=== PATIENT | male | born 1940 | race Caucasian/White ===

== ENCOUNTER 2019-05-08 17:09 | Inpatient (IN) ==
--- NOTE | 2019-05-08 17:45 | Emergency Department Note ---
Lower Extremity Injury HPI - General Chief Complaint: Extremity Injury, Lower Stated Complaint: rt hip Pain Time Seen by Provider: 05/08/19 17:31 Source: patient Mode of arrival: ambulatory Limitations: no limitations - History of Present Illness HPI Narrative: LTCF states pt has demonstrated right hip fracture sustained while assisted fall to the ground. Pt with unspecified mental disabilities and as a result poor historian. He states no pain currently. Their paperwork states pt has a right intertrochanteric fracture. complaint: hip injury Onset (ago): day(s) (1) Injury: Right: hip (pt not really reporting pain) Type of Injury: other (assisted fall) Place: other (LTCF) Improves with: nothing Worsens with: weight bearing Context: fall Other symptoms: none - Related Data Home Medications Medication Instructions Recorded Confirmed alprazolam 0.25 mg tablet 0.25 mg PO BID 07/21/15 04/12/18 aripiprazole 2 mg tablet 2 mg PO QHS 07/21/15 04/12/18 aspirin 81 mg tablet,delayed 81 mg PO QDAY 07/21/15 04/12/18 release benztropine PO 07/21/15 04/12/18 cholecalciferol (vitamin D3) 2,000 2,000 unit PO QDAY 07/21/15 04/12/18 unit capsule cyanocobalamin (vit B-12) 500 mcg 1,000 mcg PO QDAY 07/21/15 04/12/18 tablet docusate sodium PO 07/21/15 04/12/18 donepezil 10 mg tablet 10 mg PO QDAY tab 07/21/15 04/12/18 folic acid PO 07/21/15 04/12/18 ibuprofen 200 mg tablet 400 mg PO BID tab 07/21/15 04/12/18 multivitamin tablet 1 tab PO QDAY 07/21/15 04/12/18 polyethylene glycol 3350 17 gram 17 g PO QDAY 07/21/15 04/12/18 oral powder packet ranitidine 300 mg tablet 300 mg PO QHS 07/21/15 04/12/18 sertraline 100 mg tablet 100 mg PO QDAY 07/21/15 04/12/18 simvastatin 20 mg tablet 20 mg PO QPM 07/21/15 04/12/18 valacyclovir 1 gram tablet PO 07/21/15 04/12/18 bisacodyl 10 mg rectal suppository 10 mg DE PRN supp 08/11/15 04/12/18 docusate sodium 100 mg capsule 100 mg PO BID 08/11/15 04/12/18 tamsulosin 0.4 mg capsule 0.4 mg PO QDAY 08/11/15 04/12/18 acetaminophen ER 650 mg 650 mg PO Q6H tab 09/21/15 04/12/18 tablet,extended release lactobacillus combination no.4 3 3,000 mmu cells PO QDAY 09/21/15 04/12/18 billion cell capsule magnesium hydroxide 400 mg/5 mL 30 ml PO QHS PRN 09/21/15 04/12/18 oral suspension melatonin 3 mg tablet 3 mg PO HS PRN 09/21/15 04/12/18 Previous Rx's Medication Instructions Recorded Azithromycin [Zithromax] 250 mg PO UD #6 tab 11/21/15 Azithromycin [Zithromax] 0 mg PO DAILY #6 tab 01/28/18 Cefuroxime Axetil [Cefuroxime] 250 mg PO BID #20 tab 01/28/18 Allergies Allergy/AdvReac Type Severity Reaction Status Date / Time No Known Drug Allergies Allergy Verified 04/12/18 10:36 Review of Systems Limitations: ROS unobtainable due to patients medical condition Past Medical History - Past Medical History PMFSH Narrative: All Active Problems (Last Reviewed 04/12/18 @ 10:38 by Kelly Franco RN) BPH loc w urin obs/LUTS (Acute) Bronchitis (Acute) Elevated WBCs (Acute) Abnormal lung sounds (Acute) Hyponatremia (Acute) Anemia (Acute) No pertinent family history (Acute) Aphthous stomatitis (Acute) COPD (chronic obstructive pulmonary disease) (Acute) Dementia (Acute) Depression (Acute) Dermatitis (Acute) Eczema (Acute) GERD (gastroesophageal reflux disease) (Acute) Arthritis (Acute) Dyslipidemia (Acute) Abnormal involuntary movements (Acute) Unspecified intellectual disabilities (Acute) - Social History smoking status: Smoker, status unknown Alcohol use: Reports: Unknown Drug use: Reports: unknown Physical Exam Limitations: no limitations General appearance: alert, in no apparent distress, other (pt is at baseline neurological function) Head: atraumatic, normocephalic Eye: Present: normal appearance, PERRL, EOMI. Absent: scleral icterus, conjunc tival injection ENT: Present: normal oropharynx, mucous membranes moist Neck: Present: trachea midline. Absent: lymphadenopathy, thyromegaly Chest: Present: symmetric chest wall rise Respiratory: Present: normal lung sounds bilaterally. Absent: respiratory distress, wheezes, stridor, accessory muscle use, prolonged expiratory phase Cardiovascular: Present: regular rate, normal rhythm. Absent: systolic murmur, diastolic murmur Abdominal: Present: soft. Absent: distention, tenderness, guarding, rebound, rigidity, organomegaly, mass Extremities: Present: other (pt is not having much pain on manipulation of the hip, Specific evaluation of the right hip reveals patient is unable to ambulate, though patient did have leg length discrepancy, right hip was internally rotated motor testing including dorsiflexion plantarflexion of the foot was noted to be intact, sensation on the dorsum and bottom of the foot was intact as well lower extremity pulses were assessed and noted to be +2 and symmetric). Absent: pedal edema, pretibial edema, calf tenderness Back: Absent: CVA tenderness (R), CVA tenderness (L), spinous process tenderness Neurological: Present: alert, oriented X3 Psychiatric: Present: normal affect, normal mood Skin: Present: warm, dry Course Course Narrative: 78-year-old male presenting with a chief complaint of ground-level fall assisted to the floor resulting in injury to his right hip. X-rays obtained here in the emergency department demonstrate a right hip intertrochanteric fracture with some comminution. Patient is not having significant pain on physical exam does have physical exam consistent with hip fracture discussed the case with orthopedic surgery and the consensus medical opinion is to admit the patient to medicine with likely surgery upcoming. Differential diagnosis considered in this case included trochanteric bursitis, hip osteoarthritis, meralgia paresthetica, osteonecrosis, hip fracture/dislocation, aortoiliac vascular disease, referred pain from SI joint or lumbar area. Vital Signs Temperature 99.9 F H 05/08/19 17:09 Pulse Rate 78 05/08/19 17:09 Respiratory Rate 20 05/08/19 17:09 Blood Pressure 131/72 05/08/19 17:09 Pulse Oximetry (%) 95 05/08/19 17:09 Temperature 99.9 F H 05/08/19 17:09 Pulse Rate 72 05/08/19 18:56 Respiratory Rate 18 05/08/19 18:56 Blood Pressure 130/70 05/08/19 18:56 Pulse Oximetry (%) 95 05/08/19 18:56 Extremity Injury, Lower - Lab Data Result diagrams: 05/08/19 18:07 05/08/19 18:06 Lab Results 05/08/19 05/08/19 Range/Units 18:06 18:07 WBC 8.5 (4.5-11.0) K/mcL RBC 3.49 L (4.50-5.90) M/mcL Hgb 9.8 L (13.5-16.5) g/dL Hct 29.7 L (41.0-55.0) % MCV 84.9 (80.0-100.0) fL MCH 28.1 (26.0-34.0) pg MCHC 33.1 (31.0-36.0) g/dL RDW 15.6 H (11.5-14.5) % Plt Count 251 (140-440) K/mcL MPV 7.7 (7.4-10.4) fL Gran % 66.7 (38.0-78.0) % Lymph % (Auto) 19.5 (15.5-49.0) % [place] % (Auto) 9.1 (1.0-12.0) % Eos % (Auto) 4.0 (0.0-7.0) % Baso % (Auto) 0.7 (0.0-2.0) % Gran # 5.6 (1.8-8.0) K/mcL Lymph # (Auto) 1.7 (1.5-4.8) K/mcL [place] # (Auto) 0.8 (0.1-0.9) K/mcL Eos # (Auto) 0.3 (0.0-0.7) K/mcL Baso # (Auto) 0.1 (0.0-0.3) K/mcL Sodium 136 (133-145) mmol/L Potassium 3.8 (3.3-5.1) mmol/L Chloride 99 (96-108) mmol/L Carbon Dioxide 25 (22-30) mmol/L Anion Gap 12.0 (8-16) BUN 16 (8-23) mg/dl Creatinine 0.7 (0.7-1.2) mg/dl GFR Calculation 89 Glucose 111 H (70-105) mg/dL Calcium 9.0 (8.6-10.4) mg/dl Total Bilirubin 0.3 (0.0-1.0) mg/dL AST 14 (0-37) U/l ALT 7 (0-40) U/l Alkaline Phosphatase 92 (39-117) U/L Total Protein 6.9 (5.9-8.4) gm/dL Albumin 3.8 (3.2-5.2) gm/dL Globulin 3.1 (2.2-3.7) gm/dL Albumin/Globulin Ratio 1.2 (1.0-2.3) Disposition Pt seen by [facility]/PA only: No Clinical Impression: Fracture of hip Disposition: Xfer As Inpt ([facility]) Condition: Fair Referrals: Issac Caldera MD [Primary Care Provider] -
--- NOTE | 2019-05-08 18:03 | XRay Report ---
HISTORY: Trauma with right hip injury FINDINGS: There is an acute comminuted intertrochanteric fracture of the proximal right femur. There is varus angulation. The neck and femoral head appear normal. The joint space is normal in width. Severe atherosclerotic disease is in the pelvis and proximal thigh bilaterally. IMPRESSION: Intertrochanteric fracture the proximal right femur Interpreted and Authenticated by: Russell Hubbard 05/08/19
--- NOTE | 2019-05-08 18:05 | XRay Report ---
HISTORY: Preop for repair hip fracture, cough FINDINGS: There is a small parenchymal scar laterally in the left lower lobe. The lungs are otherwise clear. There are skin fold artifacts overlying the right chest. An old healed fracture is present laterally in the right 10th rib. The heart size and pulmonary vasculature are normal. IMPRESSION: No acute abnormality Interpreted and Authenticated by: Russell Hubbard 05/08/19
[2019-05-08 18:41] LABS: Basophils # (Auto) 0.1 K/mcL (0.0-0.3); Basophils % (Auto) 0.7 % (0.0-2.0); Eosinophils # (Auto) 0.3 K/mcL (0.0-0.7); Granulocytes % (Auto) 66.7 % (38.0-78.0); Hematocrit 29.7 % (41.0-55.0); Hemoglobin 9.8 g/dL (13.5-16.5); Lymphocytes # (Auto) 1.7 K/mcL (1.5-4.8); Lymphocytes % (Auto) 19.5 % (15.5-49.0); Mean Cell Volume 84.9 fL (80.0-100.0); Mean Corpuscular HGB Conc 33.1 g/dL (31.0-36.0); Mean Platelet Volume 7.7 fL (7.4-10.4); Monocytes # (Auto) 0.8 K/mcL (0.1-0.9); Monocytes % (Auto) 9.1 % (1.0-12.0); Platelet Count 251 K/mcL (140-440); RBC 3.49 M/mcL (4.50-5.90); Red Cell Distribution Width 15.6 % (11.5-14.5); WBC 8.5 K/mcL (4.5-11.0)
[2019-05-08 18:58] LABS: ALT/SGPT 7 U/l (0-40); AST/SGOT 14 U/l (0-37); Albumin 3.8 gm/dL (3.2-5.2); Albumin/Globulin Ratio 1.2 (1.0-2.3); Alkaline Phosphatase 92 U/L (39-117); Bilirubin,Total 0.3 mg/dL (0.0-1.0); Blood Urea Nitrogen 16 mg/dl (8-23); Carbon Dioxide 25 mmol/L (22-30); Chloride 99 mmol/L (96-108); Globulin 3.1 gm/dL (2.2-3.7); Glomerular Filtration Rate 89; Glucose 111 mg/dL (70-105)
[2019-05-08] MEDS ORDERED: ceFAZolin 2 GM in DEXTROSE 5% IN WATER 50 ML IV SCH ×2 (21:00→23:38)
[2019-05-08] MEDS ORDERED: LIDOCAINE HCL/PF 100 MG/5 ML SYRINGE IV ONE (21:17)
[2019-05-08] MEDS ORDERED: SUCCINYLCHOLINE 20 MG/ML ML IV ONE (21:17)
[2019-05-08] MEDS ORDERED: MIDAZOLAM 2 MG/2 ML VIAL IV ONE (21:17)
[2019-05-08] MEDS ORDERED: GLYCOPYRROLATE 0.2 MG/ML VIAL IV ONE (21:17)
[2019-05-08] MEDS ORDERED: KETAMINE 100 MG/ML ML IV ONE (21:17)
[2019-05-08] MEDS ORDERED: PHENYLEPHRINE 10 MG/ML VIAL IV ONE (21:17)
[2019-05-08] MEDS ORDERED: ONDANSETRON 4 MG/2 ML VIAL IV ONE (21:17)
[2019-05-08] MEDS ORDERED: fentaNYL 250 MCG/5 ML VIAL IV ONE (21:17)
[2019-05-08] MEDS ORDERED: PROPOFOL 200 MG/20 ML VIAL IV ONE (21:17)
[2019-05-08] MEDS ORDERED: DEXAMETHASONE 10 MG/ML VIAL IV ONE (21:17)
[2019-05-08 21:24] LABS: Appearance,Urine TURBID; Bacteria,Urine 0 /hpf (0); Bilirubin,Urine NEG (NEG); Color,Urine YELLOW; Culture Indicated,Urine YES; Glucose,Urine (UA) NEGATIVE (NEG); Ketones,Urine NEG (NEG); Leukocyte Esterase,Urine 500 /uL (NEG); Mucus,Urine MANY /hpf (0); Nitrate,Urine NEG (NEG); Protein,Urine 100 mg/dL (NEG); Specific Gravity,Urine 1.019 (1.000-1.035); Urine Blood NEG mg/dL (<0.03); Urine RBC 2 /hpf (0-1); Urine Squamous Epithelial Cell 0 /hpf (0-4); Urine WBC > 182 /hpf (0-4); Urobilinogen,Urine NEG (NEG)
[2019-05-08] MEDS ORDERED: FLUMAZENIL 0.1 MG/ML ML IV PRN (21:59)
[2019-05-08] MEDS ORDERED: ONDANSETRON 4 MG/2 ML VIAL IV PRN ×2 (21:59→23:38)
[2019-05-08] MEDS ORDERED: NALOXONE HCL 0.4 MG/ML VIAL IV PRN (21:59)
[2019-05-08] MEDS ORDERED: ACETAMINOPHEN 1,000 MG/100 ML BOTTLE IV ONE (21:59)
[2019-05-08] MEDS ORDERED: LACTATED RINGERS 250 ML IV PRN (21:59)
[2019-05-08] MEDS ORDERED: BENZOCAINE/MENTHOL 1 LOZENGE PO PRN (21:59)
[2019-05-08] MEDS ORDERED: IPRATROPIUM/ALBUTEROL 3 ML AMPUL.NEB NEB PRN (21:59)
[2019-05-08] MEDS ORDERED: METHOCARBAMOL 1,000 MG/10 ML VIAL IV PRN (21:59)
[2019-05-08] MEDS ORDERED: fentaNYL 100 MCG/2 ML VIAL IV PRN (21:59)
[2019-05-08] MEDS ORDERED: LACTATED RINGERS 1,000 ML IV SCH ×2 (22:00→23:38)
--- NOTE | 2019-05-08 22:20 | Consultation ---
DATE OF CONSULTATION: 05/08/2019 DATE OF CONSULTATION: 05/08/2019 CONSULTING PROVIDER: Dr. Katy Andrade REASON FOR CONSULTATION: Right hip fracture. HISTORY OF PRESENT ILLNESS: The patient is an 78-year-old resident of [facility], who by report fell yesterday with a ground-level fall. This was assisted in nature per the reports and subsequently brought to the Emergency Department here at [facility] for further evaluation and treatment with a right intertrochanteric hip fracture. The patient upon questioning does not formally coherent sentences and does not endorse any pain and is a poor historian in that regards. PAST MEDICAL HISTORY: Significant for history of anxiety, major depressive disorder, dysphagia, BPH, COPD, dementia, mentally challenged his full life per relative and unable to read or write. PAST SURGICAL HISTORY: Not obtained. ALLERGIES: No known drug allergies to medications. MEDICATIONS: Alprazolam, aripiprazole, aspirin, multivitamins including calcium and vitamin D3, donepezil, ranitidine, sertraline, simvastatin, tamsulosin. REVIEW OF SYSTEMS: Per the report is negative, however, not obtained by patient. SOCIAL HISTORY: Resides at the [facility] in [place]. Unknown if he uses tobacco. He does have 3 family members to make his decision for him; however, none of them are power of therapeutic recreation specialist. PHYSICAL EXAMINATION: GENERAL: The patient is resting comfortably in [facility], does not appear to be in acute distress. He does converse with you; however, not in a manner that makes sense. VITAL SIGNS: Heart rate 78, respiratory rate 18, blood pressure is 130/70. He is satting 95% on room air. His temperature is 99.9. EXTREMITIES: Examination of his bilateral extremities appear to be atraumatic in nature. He is moving spontaneously with discussion. His left lower extremity skin is intact. He does not endorse any tenderness with palpation. There is no crepitus. He does move it spontaneously, but does not comply with requests, and his foot is warm and well perfused. Right lower extremity: He is lying on the affected side with his hip flexed approximately 90 degrees and knee bent. Otherwise, skin is intact. His feet are warm and well perfused. IMAGING: His plain radiograph is demonstrating a right intertrochanteric hip fracture. LABORATORY DATA: White count is 8.5, his hemoglobin and hematocrit is 9.8 and 29.7, his platelets are 251. His electrolytes are normal with glucose of 111, normal creatinine of 0.7. ASSESSMENT AND PLAN: This is an 78-year-old male with dementia as well as right intertrochanteric hip fracture. I attempted to discuss the injury with him, but he is not understanding. Thus, I discussed it with Emma, which is a family member, at length with my recommendation for operative treatment to aid in baptism of his function, which he is already a wheelchair and walker limited by report on the paperwork from [facility]. However, this will allow for baptism of his anatomy as well as a better functional and less pain long-term. I discussed this with her and they did wish to proceed in that fashion. That was discussed further with the hospitalist to ensure there is no other concerning factors prior to proceeding with surgery. Plan will be for operative fixation of right intertrochanteric hip fracture. DLW:in Job ID: [id number] Doc ID: [id number] Pranav Malik MD
--- NOTE | 2019-05-08 23:18 | Brief Operative Note ---
Date of procedure: 05/08/19 Pre-op diagnosis: right intertrochanteric hip fracture Post-op diagnosis: same Procedure: ORIF right intertroch femur frature with short gamma nail Grafts/Implants: Yes (short gamma 100mm lag screw) Anesthesia: GETA Findings: reducible intertroch fracture, lesser off Complications: none Surgeon: Pranav Malik Logistics Technician: Leroy Stewart Estimated blood loss (cc): 100 Tourniquet Time (Minutes): 0 Specimens Removed/Pathology: none sent Condition: stable Disposition: PACU
--- NOTE | 2019-05-08 23:35 | Internal Med History&Physical ---
Medical - H&P: [facility] Patient information: Note initiated : 05/08/19 at 11:35 pm Service Date, if different from initiated Date: [] Patient: Stu Jacobo 78 y/o M admitted on 05/08/19 for rt hip Pain. Chief Complaint: [] Chief complaint: Fall/right hip pain History of present illness: Mr. Jacobo is a 78 year old M mentally delayed gentleman who presents from long-term care facility after sustaining a fall injuring his right hip. Exact circumstances of fall were unknown as the patient is very poor historian. Initial work-up in the ER was consistent with right hip fracture. patient was taken to surgery for operative intervention and postoperatively hospitalist service was consulted. At the time of evaluation patient is under the effect of sedation. Immediate postop. Does not seem to apparent distress. Vital signs have been stable. No family members are present. Prior records were reviewed. Patient carries a history of Parkinson's disease/degenerative joint disease, dementia and depression no major prior medical history including CAD/CVA. Review of systems Attempted but could not performed Medical - H&P: [facility] Medical history: Bronchitis (Acute) No pertinent family history (Acute) Aphthous stomatitis (Acute) COPD (chronic obstructive pulmonary disease) (Acute) Dementia (Acute) Depression (Acute) Dermatitis (Acute) Eczema (Acute) GERD (gastroesophageal reflux disease) (Acute) Arthritis (Acute) Dyslipidemia (Acute) Abnormal involuntary movements (Acute) Unspecified intellectual disabilities (Acute) Family History Other Hypertension Malignant neoplasm Malignant neoplasm of prostate Myocardial Infarction Social History smoking status: Smoker, status unknown alcohol intake frequency: does not drink Drug use: none Alcohol use: none Medical - H&P: Meds Home Medications Medication Instructions Recorded Confirmed Type cholecalciferol (vitamin D3) 2,000 2,000 unit PO QDAY 07/21/15 05/09/19 History unit capsule polyethylene glycol 3350 17 gram 17 g PO DAILYP PRN 07/21/15 05/09/19 History oral powder packet bisacodyl 10 mg rectal suppository 10 mg MN PRN PRN supp 08/11/15 05/09/19 History tamsulosin 0.4 mg capsule 0.4 mg PO HS 08/11/15 05/09/19 History melatonin 3 mg tablet 3 mg PO HS 09/21/15 05/09/19 History Acetaminophen [Non-Aspirin] 650 mg PO Q6HP PRN 05/09/19 05/09/19 History Aspirin [Veronica Chewable Aspirin] 81 mg PO DAILY 05/09/19 05/09/19 History Calcium Carbonate [Tums] 500 mg CHEWED TIDCC 05/09/19 05/09/19 History Carbidopa/Levodopa [Sinemet 25-250 0.5 tab PO TID 05/09/19 05/09/19 History mg Tablet] Cyanocobalamin (Vitamin B-12) 1,000 mcg PO DAILY 05/09/19 05/09/19 History [Vitamin B-12] Folic Acid [FA-8] 0.8 mg PO BID 05/09/19 05/09/19 History Magnesium Hydroxide [Milk of 30 ml PO PRN PRN 05/09/19 05/09/19 History Magnesia] Na Phos,M-B/Na Phos,Di-Ba [Fleets 1 dose MN PRN PRN 05/09/19 05/09/19 History Adult] Ondansetron HCl [Zofran] 8 mg PO Q6HP PRN 05/09/19 05/09/19 History Propylene Glycol-Glycerin Solu 2 gtt OU BID 05/09/19 05/09/19 History Ranitidine HCl [Zantac] 300 mg PO QHS 05/09/19 05/09/19 History Saccharomyces Boulardii [Florastor] 250 mg PO BID 05/09/19 05/09/19 History guaiFENesin [Mucinex] 600 mg PO DAILY 05/09/19 05/09/19 History Allergies Allergy/AdvReac Type Severity Reaction Status Date / Time No Known Drug Allergies Allergy Verified 04/12/18 10:36 Medical - H&P: Exam - Constitutional Vitals: Temp Pulse Resp BP Pulse Ox 98.8 F 73 22 105/53 98 05/08/19 23:13 05/08/19 23:13 05/08/19 23:13 05/08/19 23:13 05/08/19 23:13 General appearance: moderate distress Exam: Patient alert however unable to carry out a conversation Head normocephalic Eye movement symmetrical Oral cavity dry No ear nose discharge Neck no lymphadenopathy S1-S2 regular rhythm Diminished breath sounds bases Abdomen soft nontender Lower extremity no cyanosis clubbing. Postoperative dressing noted right hip Skin no suspicious lesion Cooperative, no agitation Neuro at baseline Medical - H&P: Reslt - Labs CBC & Chem 7: 05/09/19 04:15 05/09/19 04:15 Labs: Short CBC 05/08/19 Range/Units 18:07 WBC 8.5 (4.5-11.0) K/mcL Hgb 9.8 L (13.5-16.5) g/dL Hct 29.7 L (41.0-55.0) % Plt Count 251 (140-440) K/mcL BMP 05/08/19 18:06 Sodium 136 Potassium 3.8 Chloride 99 Carbon Dioxide 25 BUN 16 Creatinine 0.7 Glucose 111 H Calcium 9.0 Liver Function 05/08/19 Range/Units 18:06 Total Bilirubin 0.3 (0.0-1.0) mg/dL AST 14 (0-37) U/l ALT 7 (0-40) U/l Alkaline Phosphatase 92 (39-117) U/L Albumin 3.8 (3.2-5.2) gm/dL Urine 05/08/19 Range/Units 20:30 Urine Color Yellow Urine Appearance Turbid Urine pH 6.0 (5.0-9.0) Ur Specific [place] 1.019 (1.000-1.035) Urine Protein 100 A (NEG) mg/dL Urine Glucose (UA) Negative (NEG) mg/dL Medical - H&P: A/P (1) Closed right hip fracture Current visit: Yes Status: Acute * Right hip fracture-status post operative intervention by Dr. farooq Florez. Postop day 1. Managed by orthopedics. * Pain management as per orthopedics Hospitalist consult * Hypotension-likely secondary to volume depletion. Initiate crystalloid/bolus/close monitoring of hemodynamics. Continue telemetry monitoring * Complicated UTI-continue antibiotic coverage and de-escalate based on cultures * PT OT nutrition support * DVT prophylaxis
[2019-05-08] MEDS ORDERED: BISACODYL 10 MG SUPP.RECT PR PRN (23:38)
[2019-05-08] MEDS ORDERED: MAGNESIUM SULFATE 2 GM/50 ML BAG IV PRN (23:38)
[2019-05-08] MEDS ORDERED: POTASSIUM CHLORIDE 20 MEQ PACKET PO PRN (23:38)
[2019-05-08] MEDS ORDERED: MAGNESIUM HYDROXIDE 30 ML ORAL.SUSP PO PRN (23:38)
[2019-05-09 05:56] LABS: ALT/SGPT 9 U/l (0-40); AST/SGOT 14 U/l (0-37); Albumin 3.4 gm/dL (3.2-5.2); Albumin/Globulin Ratio 1.1 (1.0-2.3); Alkaline Phosphatase 84 U/L (39-117); Bilirubin,Direct < 0.2 mg/dL (0.0-0.3); Bilirubin,Total 0.3 mg/dL (0.0-1.0); Blood Urea Nitrogen 12 mg/dl (8-23); Calcium 8.7 mg/dl (8.6-10.4); Carbon Dioxide 23 mmol/L (22-30); Chloride 101 mmol/L (96-108); Globulin 3.1 gm/dL (2.2-3.7); Glomerular Filtration Rate 95; Glucose 173 mg/dL (70-105); Lactate Dehydrogenase 219 U/L (94-250); Phosphorous 3.6 mg/dL (2.7-4.5); Triglycerides 34 mg/dl (<150)
[2019-05-09 06:04] LABS: Hemoglobin 9.1 g/dL (13.5-16.5); Mean Cell Volume 87.5 fL (80.0-100.0); Mean Corpuscular HGB Conc 32.5 g/dL (31.0-36.0); Mean Platelet Volume 7.9 fL (7.4-10.4); Platelet Count 220 K/mcL (140-440); Red Cell Distribution Width 15.8 % (11.5-14.5); WBC 8.7 K/mcL (4.5-11.0)
[2019-05-09 06:33] LABS: Band Neutrophils % 1 % (0-10); Lymphocytes % 7 % (15-49); Monocytes % (Manual) 4 % (1-12); Platelet Estimate NORMAL (NORMAL); RBC Morphology NORMAL (NORMAL); Segmented Neutrophils % 88 % (38-78)
[2019-05-09] MEDS ORDERED: 0.9 % SODIUM CHLORIDE 500 ML IV ONE (07:38)
[2019-05-09] MEDS: LACTATED RINGERS 1,000 ML IV SCH (07:46)
--- NOTE | 2019-05-09 07:54 | XRay Report ---
HISTORY: Shortness of breath and postop right hip surgery FINDINGS: Interstitial lung markings of become prominent bilaterally since 05/08/19. This is most apparent in a left perihilar distribution. The heart size is normal. There is no consolidating infiltrate or pleural effusion. There are clips at the gastroesophageal junction. Couple old healed right sided rib fractures are noted. IMPRESSION: New onset mild interstitial lung disease. This could be due to fluid overload. Interstitial inflammatory reaction is possible but less likely. Interpreted and Authenticated by: Russell Hubbard 05/09/19
--- NOTE | 2019-05-09 08:14 | Operative Note ---
DATE OF OPERATION: 05/08/2019 PREOPERATIVE DIAGNOSIS: Right intertrochanteric hip fracture. POSTOPERATIVE DIAGNOSIS: Right intertrochanteric hip fracture. PROCEDURE: Open reduction and internal fixation of right intertrochanteric hip fracture with a short gamma nail. SURGEON: Pranav Malik M.D. TAX STAFF ACCOUNTANT: Leroy Stewart PA-C. This provider's expertise and technical skill were required throughout the case. The PA assisted with preoperative coordination, intraoperative retraction, wound closure, dressing and splint application, as well as postoperative documentation and care coordination. ANESTHESIA: General endotracheal anesthesia. IV FLUIDS: 700 mL lactated ringer. IV ANTIBIOTICS: 2 grams Ancef. ESTIMATED BLOOD LOSS: 100 mL TOURNIQUET TIME: 0 minutes IMPLANTS: Short gamma nail with 100 mm lag screw and a 35 distal locking screw. PATHOLOGY/LAB: None. COMPLICATIONS: None apparent. INDICATIONS: The patient is an 78-year-old male who fell yesterday at his custodial, a ground level fall resulting in a right intertrochanteric hip fracture. He has some mental limitations and was brought to the emergency department today for further evaluation and treatment. I discussed the injury with his family with recommendation for operative treatment to improve his pain as well as postoperative mobility, especially with transfers and sitting. I did discuss the risks of the surgery as well as alternatives to nonoperative treatment. Given the options, they wished to proceed with surgery. DESCRIPTION OF PROCEDURE: The patient was met in preoperative holding area and site was verified and marked. He was then taken back to the operating room where he underwent successful endotracheal anesthesia. He was placed on the hana table with bilateral lower extremity placed in boots. The right lower extremity was prepped and draped in the usual sterile fashion with a shower curtain. I did verify that AP and lateral imaging could be obtained prior to prepping and draping. A surgical timeout was performed to verify the patient identity, correct procedure being performed, and extremity being operated on, and everybody was in agreement. Under fluoroscopy, I isolated at the level of the greater trochanter with a guidewire in place of the tip as well as at the anterior and middle one-third junction. A guidewire was placed and verified to be intramedullary on AP and lateral. Once this was placed, the incision was extended distally down to the level of the greater trochanter. A guide was placed along the soft tissue protector and the open reamer was utilized to open the canal. At this point, I replaced with the guidewire with a long guidewire and placed the nail over top of this. He had significant varus neck angle and I placed the screw opening of the nail at the very inferior margin to the point where it was on the inferior cortex and I subsequently moved it slightly more proximal which put the nail in the more superior one half of the femoral neck than the center of the femoral neck. However, it was relatively close and I felt this was adequate for him given his limited mobility. At this point, I measured it to be 100 mm and this was overdrilled and a screw was placed after placing a anti-rotational guide pin. A distal interlock was placed with the guide as well. The set screw was placed as well, prior to removing the guide of the handle. Once this was complete, obtained an AP and lateral of the hip as well as the distal interlock and verified the adequate position and the reduction. At this point, the wound was copiously irrigated. The ITB was closed with 0 Vicryl, subcutaneous with 3-0 Vicryl and skin was closed with 3-0 nylon after copious irrigation. The leg was then cleaned and dried. Xeroform along with 4 x 4's and Medipore tape were applied. The patient was awoken from anesthesia and transferred to the PACU with vital signs stable. The patient will be progressive weightbearing with a walker; however, he is high risk for falls and limited mobility, no restriction of range of motion. DLAracelis:alissa Job ID: [id number] Doc ID: [id number] Pranav ROMO
[2019-05-09] MEDS: HEPARIN 5,000 UNIT/ML VIAL SQ SCH ×2 (08:57→20:45)
[2019-05-09] MEDS: cefTRIAXone 2 GM in DEXTROSE 5% IN WATER 50 ML IV SCH (08:57)
[2019-05-09] MEDS ORDERED: POLYETHYLENE GLYCOL 3350 17 GM PACKET PO PRN (09:57)
--- NOTE | 2019-05-09 09:58 | Internal Med Progress Note ---
Medical - PN: Subj Patient information: Note initiated : 05/09/19 at 9:54 am Service Date, if different from initiated Date: [] Patient: Stu Jacobo 78 y/o M admitted on 05/08/19 for rt hip Pain. Chief Complaint: [] Interval history: Mr. Jacobo is a 78 year old M mentally delayed gentleman who presents from long-term care facility after sustaining a fall injuring his right hip. Exact circumstances of fall were unknown as the patient is very poor historian. Initial work-up in the ER was consistent with right hip fracture. patient was taken to surgery for operative intervention and postoperatively hospitalist service was consulted. At the time of evaluation patient is under the effect of sedation. Immediate postop. Does not seem to apparent distress. Vital signs have been stable. No family members are present. Prior records were reviewed. Patient carries a history of Parkinson's disease/d egenerative joint disease, dementia and depression no major prior medical history including CAD/CVA. 05/09-doing well postop. Nurse concerned about low blood pressure. Started on crystalloids with improvement in systolics. Thompson is draining clear urine. Labs stable. No significant postoperative pain. No overnight events. - Constitutional Vitals: Vital Signs Temp Pulse Resp BP Pulse Ox 98 F 80 24 H 80/38 94 05/09/19 07:28 05/09/19 07:28 05/09/19 07:28 05/09/19 07:28 05/09/19 07:28 Period Temp Pulse Resp BP Sys/Granado Pulse Ox Last 24 Hr 97.9 F-99.9 F 62-85 16-24 80-135/38-87 91-100 Intake and Output 05/08/19 05/09/19 05/09/19 21:59 05:59 13:59 Intake Total 100 Output Total 250 700 Balance -250 -600 Weight 160 lb 135 lb 8 oz Intake & Output: Intake & Output 05/08/19 05/09/19 05/09/19 21:59 05:59 13:59 Intake Total 100 Output Total 250 700 Balance -250 -600 Weight 160 lb 135 lb 8 oz Intake: IV 100 Output: Urine Catheter Amount 250 700 Other: Urine Appearance Clear Cloudy indwelling thompson Clear Cloudy Urine Color Bright Yellow Bright Yellow indwelling thompson Bright Yellow Pale Bright Yellow Urine Odor Normal Normal General appearance: no acute distress Exam: Alert and respond to commands Nondistressed No significant pain swelling at surgery site Thompson is draining clear urine Medical - PN: Obj Da - Labs CBC & Chem 7: 05/09/19 04:15 05/09/19 04:15 Labs: Abnormal Lab Results 05/09/19 05/09/19 05/08/19 04:15 04:15 20:30 RBC 3.20 L Hgb 9.1 L Hct 28.0 L RDW 15.8 H Seg Neutrophils % 88 H Lymphocytes % 7 L Creatinine 0.6 L Glucose 173 H Urine Protein 100 A Ur Leukocyte Esterase 500 A Urine RBC 2 H Urine WBC > 182 H Urine Mucus Many A 05/08/19 05/08/19 18:07 18:06 RBC 3.49 L Hgb 9.8 L Hct 29.7 L RDW 15.6 H Seg Neutrophils % Lymphocytes % Creatinine Glucose 111 H Urine Protein Ur Leukocyte Esterase Urine RBC Urine WBC Urine Mucus Meds: Medications Acetaminophen (Tylenol) 650 mg PO Q4-6HP PRN PRN Reason: PAIN/FEVER > 101 Bisacodyl (Dulcolax) 10 mg [place] Q2-3DAYS PRN PRN Reason: Constipation Docusate Sodium (Colace) 100 mg PO BID [facility] Heparin Sodium (Porcine) (Heparin) 5,000 unit SQ Q12 [facility] Last Admin: 05/09/19 08:57 Dose: 5,000 unit Documented by: Magnesium Sulfate (Magnesium Sulfate) 2 gm in 50 mls @ 50 mls/hr IV UD PRN PRN Reason: MG = or < 1.7 Acetaminophen (Ofirmev) 1,000 mg in 100 mls @ 200 mls/hr IV Q6HP PRN PRN Reason: PAIN/FEVER > 101 Lactated Ringer's (Lactated Ringers) 1,000 mls @ 50 mls/hr IV .Q20H [facility] Last Admin: 05/09/19 07:46 Dose: 50 mls/hr Documented by: Ceftriaxone Sodium 2 gm/ (Dextrose) 50 mls @ 100 mls/hr IV Q24H [facility]; Protocol Last Admin: 05/09/19 08:57 Dose: 100 mls/hr Documented by: Iron Carb/Multivit/Statistician Mathematical/Folic Acid (Multivitamin W/Minerals) 1 tab PO DAILY [facility] Magnesium Hydroxide (Milk Of Magnesia) 30 ml PO HSP PRN PRN Reason: Constipation Ondansetron HCl (Zofran) 4 mg IV Q4-6HP PRN PRN Reason: Nausea And Vomiting Potassium Chloride (Klor-Con) 40 meq PO DAILYP PRN PRN Reason: K+ < 3.5 Senna/Docusate Sodium (Senna Plus Tablet) 1 tab PO HS [facility] Medical - PN: A/P - Time Spent With Patient Total time spent is greater than 50% in coordination of care (as documented) at patient's floor/unit and/or counseling patient: 25 - 35 minutes (1) Closed right hip fracture Status: Acute Assessment and plan: * Right hip fracture-Postop day 1. Managed by orthopedics. * Pain management well controlled and managed as per orthopedics Hospitalist consult * Hypotension-likely secondary to volume depletion. Clinical improvement noted with crystalloid bolus. * Complicated UTI-continue Rocephin and de-escalate based on cultures * History of Parkinson's continue carbidopa carbidopa * BPH continue tamsulosin * PT OT nutrition support * DVT prophylaxis on heparin Current Visit: Yes
[2019-05-09] MEDS: DOCUSATE SODIUM 100 MG CAPSULE PO SCH ×2 (10:19→21:07)
[2019-05-09] MEDS: MULTIVIT,THER IRON,CA,FA & MIN 1 TABLET PO SCH (10:19)
--- NOTE | 2019-05-09 12:35 | Orthopedic Progress Note ---
Subjective Patient information: Note initiated : 05/09/19 at 12:32 pm Service Date, if different from initiated Date: [] Patient: Stu Jacobo 78 y/o M admitted on 05/08/19 for rt hip Pain. Chief Complaint: [] Principal diagnosis: right intertrochanteric hip fracture Interval history: receiving fluid for hypotension, otherwise stable. Objective Vital signs: Vital Signs Temp Pulse Pulse Resp BP BP BP 05/09/19 11:36 98.2 F 66 20 127/65 05/09/19 09:56 64 107/59 05/09/19 09:40 65 114/60 05/09/19 09:25 68 111/57 05/09/19 09:10 69 119/66 05/09/19 08:55 71 108/56 05/09/19 07:28 98 F 80 24 H 80/38 05/09/19 03:47 98.7 F 79 20 135/71 05/09/19 03:31 62 101/58 05/09/19 02:31 64 104/63 05/09/19 01:31 63 101/60 05/09/19 01:01 69 113/79 05/09/19 00:31 66 100/58 05/09/19 00:16 67 98/59 05/09/19 00:01 69 101/60 05/08/19 23:46 79 129/65 05/08/19 23:31 97.9 F 79 17 119/64 05/08/19 23:13 98.8 F 73 22 105/53 05/08/19 22:58 98.8 F 68 18 95/46 05/08/19 22:43 98.4 F 69 18 93/48 05/08/19 22:38 70 17 98/49 05/08/19 22:33 69 17 113/48 05/08/19 22:28 98.1 F 76 16 121/48 05/08/19 20:35 98.6 F 05/08/19 20:30 85 18 134/87 05/08/19 18:56 72 18 130/70 05/08/19 17:09 99.9 F H 78 20 131/72 Pulse Ox 05/09/19 11:36 96 05/09/19 09:56 95 05/09/19 09:40 94 05/09/19 09:25 94 05/09/19 09:10 96 05/09/19 08:55 94 05/09/19 07:28 94 05/09/19 03:47 96 05/09/19 03:31 98 05/09/19 02:31 98 05/09/19 01:31 97 05/09/19 01:01 05/09/19 00:31 95 05/09/19 00:16 94 05/09/19 00:01 93 05/08/19 23:46 91 05/08/19 23:31 91 05/08/19 23:13 98 05/08/19 22:58 100 05/08/19 22:43 100 05/08/19 22:38 100 05/08/19 22:33 100 05/08/19 22:28 100 05/08/19 20:35 05/08/19 20:30 94 05/08/19 18:56 95 05/08/19 17:09 95 Intake and Output 05/08/19 05/09/19 05/09/19 21:59 05:59 13:59 Intake Total 100 Output Total 250 700 Balance -250 -600 Intake: IV 100 Output: Urine Catheter Amount 250 700 Other: Meal Lunch Percent of Meal Consumed 0% Urine Appearance Clear Cloudy indwelling thompson Clear Cloudy Urine Color Bright Yellow Bright Yellow indwelling thompson Bright Yellow Pale Bright Yellow Urine Odor Normal Normal Weight 160 lb 135 lb 8 oz 135 lb 8 oz Patient Weight 05/10/19 05:59 Weight 135 lb 8 oz Intake & Output: Intake & Output 05/08/19 05/09/19 05/09/19 21:59 05:59 13:59 Intake Total 100 Output Total 250 700 Balance -250 -600 Weight 160 lb 135 lb 8 oz 135 lb 8 oz Intake: IV 100 Output: Urine Catheter Amount 250 700 Other: Meal Lunch Percent of Meal Consumed 0% Urine Appearance Clear Cloudy indwelling thompson Clear Cloudy Urine Color Bright Yellow Bright Yellow indwelling thompson Bright Yellow Pale Bright Yellow Urine Odor Normal Normal Dressing: Yes dry, Yes intact Weight bearing status: full - Labs CBC & BMP: 05/09/19 04:15 05/09/19 04:15 Labs: 05/09/19 05/08/19 04:15 18:07 Hgb 9.1 L 9.8 L Hct 28.0 L 29.7 L Assessment and Plan - Narrative A/P Narrative: POD 1 s/p right short gamma nail for intertroch femur fracture - wbat with assistance- baseline is minimal ambulation -- pt/ot - diet- limited intake but encourage - oral pain meds but not endorsing much pain - prophy- IS (doesn't use), scds, tania - dispo: if stable tomorrow could d/c to his SNF.
[2019-05-09] MEDS: ACETAMINOPHEN 1,000 MG/100 ML BOTTLE IV PRN ×2 (15:40→23:49)
[2019-05-09] MEDS: CARBIDOPA/LEVODOPA 25/250 TABLET PO SCH ×2 (15:51→21:07)
[2019-05-09] MEDS: LACTOBACILLUS 1 CAPSULE PO SCH (20:45)
[2019-05-09] MEDS: FAMOTIDINE 20 MG TABLET PO SCH (20:45)
[2019-05-09] MEDS: FOLIC ACID 1 MG TABLET PO SCH (20:46)
[2019-05-09] MEDS: TAMSULOSIN 0.4 MG CAPSULE PO SCH (20:46)
[2019-05-09] MEDS: MELATONIN 3 MG TABLET PO SCH (20:46)
[2019-05-09] MEDS: POLYVINYL ALCOHOL OPHTH DROPS 15ML BOTTLE OU SCH (21:05)
[2019-05-09] MEDS: SENNOSIDES/DOCUSATE SODIUM 1 TAB TABLET PO SCH (21:07)
[2019-05-10] MEDS: LACTATED RINGERS 1,000 ML IV SCH (04:19)
[2019-05-10 05:48] LABS: Hematocrit 24.8 % (41.0-55.0); Hemoglobin 8.1 g/dL (13.5-16.5); Mean Cell Volume 86.2 fL (80.0-100.0); Mean Corpuscular HGB Conc 32.7 g/dL (31.0-36.0); Mean Platelet Volume 8.2 fL (7.4-10.4); Platelet Count 206 K/mcL (140-440); RBC 2.87 M/mcL (4.50-5.90); Red Cell Distribution Width 15.8 % (11.5-14.5); WBC 8.4 K/mcL (4.5-11.0)
[2019-05-10 06:38] LABS: ALT/SGPT 9 U/l (0-40); AST/SGOT 19 U/l (0-37); Albumin 3.2 gm/dL (3.2-5.2); Alkaline Phosphatase 77 U/L (39-117); Bilirubin,Direct < 0.2 mg/dL (0.0-0.3); Bilirubin,Total 0.3 mg/dL (0.0-1.0); Blood Urea Nitrogen 13 mg/dl (8-23); Calcium 8.5 mg/dl (8.6-10.4); Carbon Dioxide 23 mmol/L (22-30); Chloride 101 mmol/L (96-108); Globulin 3.1 gm/dL (2.2-3.7); Glomerular Filtration Rate 95; Glucose 99 mg/dL (70-105); Lactate Dehydrogenase 221 U/L (94-250); Phosphorous 2.9 mg/dL (2.7-4.5); Triglycerides 82 mg/dl (<150); Uric Acid 3.7 mg/dL (2.5-8.0)
[2019-05-10 08:06] LABS: Band Neutrophils % 3 % (0-10); Eosinophils % (Manual) 2 % (0-7); Hypochromasia 1+ (NONE SEEN); Lymphocytes % 17 % (15-49); Monocytes % (Manual) 8 % (1-12); Platelet Estimate NORMAL (NORMAL); Polychromasia 1+ (NONE SEEN); RBC Morphology ABNORM (NORMAL); Segmented Neutrophils % 70 % (38-78)
[2019-05-10] MEDS: HEPARIN 5,000 UNIT/ML VIAL SQ SCH ×2 (08:53→20:23)
[2019-05-10] MEDS: FOLIC ACID 1 MG TABLET PO SCH ×2 (08:53→20:23)
[2019-05-10] MEDS: ASPIRIN 81 MG TAB.CHEW PO SCH (08:54)
[2019-05-10] MEDS: LACTOBACILLUS 1 CAPSULE PO SCH ×2 (08:54→20:23)
[2019-05-10] MEDS: cefTRIAXone 2 GM in DEXTROSE 5% IN WATER 50 ML IV SCH (08:54)
[2019-05-10] MEDS: MULTIVIT,THER IRON,CA,FA & MIN 1 TABLET PO SCH (08:54)
[2019-05-10] MEDS: POLYVINYL ALCOHOL OPHTH DROPS 15ML BOTTLE OU SCH ×2 (08:55→20:23)
[2019-05-10] MEDS: CARBIDOPA/LEVODOPA 25/250 TABLET PO SCH ×3 (08:56→20:24)
[2019-05-10] MEDS: DOCUSATE SODIUM 100 MG CAPSULE PO SCH ×2 (08:56→20:24)
--- NOTE | 2019-05-10 09:52 | Internal Med Progress Note ---
Medical - PN: Subj Patient information: Note initiated : 05/10/19 at 9:49 am Service Date, if different from initiated Date: [] Patient: Stu Jacobo a 78 y/o M admitted on 05/08/19 for rt hip Pain. Chief Complaint: [] Interval history: Mr. Jacobo is a 78 year old M mentally delayed gentleman who presents from long-term care facility after sustaining a fall injuring his right hip. Exact circumstances of fall were unknown as the patient is very poor historian. Initial work-up in the ER was consistent with right hip fracture. patient was taken to surgery for operative intervention and postoperatively hospitalist service was consulted. At the time of evaluation patient is under the effect of sedation. Immediate postop. Does not seem to apparent distress. Vital signs have been stable. No family members are present. Prior records were reviewed. Patient carries a history of Parkinson's disease/d egenerative joint disease, dementia and depression no major prior medical history including CAD/CVA. 05/09-doing well postop. Nurse concerned about low blood pressure. Started on crystalloids with improvement in systolics. Lopes is draining clear urine. Labs stable. No significant postoperative pain. No overnight events. 05/10-patient doing well. No overnight events. No concerns per staff. Essentially wheelchair dependent baseline. Hemoglobin 8.1. No evidence of bleeding. No significant pain. Tolerating diet. Anticipate discharge in 48 hours to SNF - Constitutional Vitals: Vital Signs Temp Pulse Resp BP Pulse Ox 99.3 F H 71 20 116/67 94 05/10/19 07:40 05/10/19 07:40 05/10/19 07:40 05/10/19 07:40 05/10/19 07:40 Period Temp Pulse Resp BP Sys/Granado Pulse Ox Last 24 Hr 97.1 F-99.3 F 64-84 16-20 106-127/52-67 91-96 Intake and Output 05/09/19 05/10/19 05/10/19 21:59 05:59 13:59 Intake Total 460 1100 Output Total 800 Balance 460 300 Weight 135 lb 8 oz Intake & Output: Intake & Output 05/09/19 05/10/19 05/10/19 21:59 05:59 13:59 Intake Total 460 1100 Output Total 800 Balance 460 300 Weight 135 lb 8 oz Intake: IV 100 1100 Lactated Ringers 1,000 ml @ 50 1000 mls/hr IV .Q20H [facility] Rx#: [id number] Oral 360 Output: Urine Catheter Amount 800 Straight 400 Void Amount 0 Other: Meal Dinner Percent of Meal Consumed 25% Urine Color Dark Yellow Straight Dark Yellow Urine Odor Strong Straight Strong Stool Size Moderate Moderate Stool Color Brown Brown Stool Consistency Formed Soft # Bowel Movements 1 # of times incontinent of 1 1 Bowels General appearance: no acute distress Exam: Alert but not oriented nonlabored breathing Pallor noted No anxiety Nondistended abdomen Medical - PN: Obj Da - Labs CBC & Chem 7: 05/10/19 04:30 05/10/19 04:30 Labs: Abnormal Lab Results 05/10/19 05/10/19 05/09/19 04:30 04:30 04:15 RBC 2.87 L Hgb 8.1 L Hct 24.8 L RDW 15.8 H Seg Neutrophils % Lymphocytes % RBC Morphology Abnorm A Polychromasia 1+ A Hypochromasia 1+ A Creatinine 0.6 L 0.6 L Glucose 173 H Calcium 8.5 L Urine Protein Ur Leukocyte Esterase Urine RBC Urine WBC Urine Mucus 05/09/19 05/08/19 05/08/19 04:15 20:30 18:07 RBC 3.20 L 3.49 L Hgb 9.1 L 9.8 L Hct 28.0 L 29.7 L RDW 15.8 H 15.6 H Seg Neutrophils % 88 H Lymphocytes % 7 L RBC Morphology Polychromasia Hypochromasia Creatinine Glucose Calcium Urine Protein 100 A Ur Leukocyte Esterase 500 A Urine RBC 2 H Urine WBC > 182 H Urine Mucus Many A 05/08/19 18:06 RBC Hgb Hct RDW Seg Neutrophils % Lymphocytes % RBC Morphology Polychromasia Hypochromasia Creatinine Glucose 111 H Calcium Urine Protein Ur Leukocyte Esterase Urine RBC Urine WBC Urine Mucus Meds: Medications Acetaminophen (Tylenol) 650 mg PO Q4-6HP PRN PRN Reason: PAIN/FEVER > 101 Artificial Tears (Artificial Tears Ophth Drops) 2 gtt OU BID [facility] Last Admin: 05/10/19 08:55 Dose: 2 gtt Documented by: Aspirin (Aspirin) 81 mg PO DAILY [facility] Last Admin: 05/10/19 08:54 Dose: 81 mg Documented by: Bisacodyl (Dulcolax) 10 mg [place] Q2-3DAYS PRN PRN Reason: Constipation Last Admin: 05/09/19 17:53 Dose: 10 mg Documented by: Carbidopa/Levodopa (Sinemet 25/250) 0.5 tab PO TID [facility] Last Admin: 05/10/19 08:56 Dose: Not Given Documented by: Docusate Sodium (Colace) 100 mg PO BID [facility] Last Admin: 05/10/19 08:56 Dose: Not Given Documented by: Famotidine (Pepcid) 40 mg PO [facility] Last Admin: 05/09/19 20:45 Dose: 40 mg Documented by: Folic Acid (Folic Acid) 0.8 mg PO BID [facility] Last Admin: 05/10/19 08:53 Dose: 0.8 mg Documented by: Heparin Sodium (Porcine) (Heparin) 5,000 unit SQ Q12 [facility] Last Admin: 05/10/19 08:53 Dose: 5,000 unit Documented by: Magnesium Sulfate (Magnesium Sulfate) 2 gm in 50 mls @ 50 mls/hr IV UD PRN PRN Reason: MG = or < 1.7 Acetaminophen (Ofirmev) 1,000 mg in 100 mls @ 200 mls/hr IV Q6HP PRN PRN Reason: PAIN/FEVER > 101 Last Infusion: 05/10/19 00:20 Dose: Infused Documented by: Lactated Ringer's (Lactated Ringers) 1,000 mls @ 50 mls/hr IV .Q20H [facility] Last Admin: 05/10/19 04:19 Dose: 50 mls/hr Documented by: Ceftriaxone Sodium 2 gm/ (Dextrose) 50 mls @ 100 mls/hr IV Q24H [facility]; Protocol Last Admin: 05/10/19 08:54 Dose: 100 mls/hr Documented by: Iron Carb/Multivit/[place]/Folic Acid (Multivitamin W/Minerals) 1 tab PO DAILY [facility] Last Admin: 05/10/19 08:54 Dose: 1 tab Documented by: Lactobacillus Rhamnosus (Culturelle) 1 cap PO BID [facility] Last Admin: 05/10/19 08:54 Dose: 1 cap Documented by: Magnesium Hydroxide (Milk Of Magnesia) 30 ml PO [facility] PRN PRN Reason: Constipation Melatonin (Melatonin 3mg Tablet) 3 mg PO [facility] Last Admin: 05/09/19 20:46 Dose: 3 mg Documented by: Ondansetron HCl (Zofran) 4 mg IV Q4-6HP PRN PRN Reason: Nausea And Vomiting Polyethylene Glycol (Miralax) 17 gm PO DAILYP PRN PRN Reason: Constipation Potassium Chloride (Klor-Con) 40 meq PO DAILYP PRN PRN Reason: K+ < 3.5 Senna/Docusate Sodium (Senna Plus Tablet) 1 tab PO [facility] Last Admin: 05/09/19 21:07 Dose: Not Given Documented by: Tamsulosin HCl (Flomax) 0.4 mg PO [facility] Last Admin: 05/09/19 20:46 Dose: 0.4 mg Documented by: Medical - PN: A/P - Time Spent With Patient Total time spent is greater than 50% in coordination of care (as documented) at patient's floor/unit and/or counseling patient: 15 - 24 minutes (1) Closed right hip fracture Status: Acute Assessment and plan: * Right hip fracture-Postop day 2. Managed as per orthopedics. * Pain management well controlled. Managed per orthopedics. Hospitalist consult * Postoperative hypotension- resolved with crystalloids. Likely secondary to volume depletion. * Complicated UTI-continue Rocephin. Cultures negative so far. * History of Parkinson's continue carbidopa/levodopa * BPH continue tamsulosin * PT OT nutrition support * DVT prophylaxis on heparin Plan * Continue antibiotic coverage * Postop management per orthopedics * pre-existing medical condition management on home meds * Discharge planning per case management likely SNF in 48 hours Current Visit: Yes
[2019-05-10] MEDS: ACETAMINOPHEN 1,000 MG/100 ML BOTTLE IV PRN (15:03)
[2019-05-10] MEDS: MELATONIN 3 MG TABLET PO SCH (20:22)
[2019-05-10] MEDS: ACETAMINOPHEN 325 MG TABLET PO PRN (20:22)
[2019-05-10] MEDS: FAMOTIDINE 20 MG TABLET PO SCH (20:22)
[2019-05-10] MEDS: TAMSULOSIN 0.4 MG CAPSULE PO SCH (20:23)
[2019-05-10] MEDS: SENNOSIDES/DOCUSATE SODIUM 1 TAB TABLET PO SCH (20:24)
[2019-05-11] MEDS: LACTATED RINGERS 1,000 ML IV SCH ×2 (03:34→21:50)
[2019-05-11 06:06] LABS: Hematocrit 22.8 % (41.0-55.0); Hemoglobin 7.4 g/dL (13.5-16.5); Mean Cell Volume 86.1 fL (80.0-100.0); Mean Corpuscular HGB Conc 32.7 g/dL (31.0-36.0); Platelet Count 207 K/mcL (140-440); RBC 2.65 M/mcL (4.50-5.90); Red Cell Distribution Width 15.9 % (11.5-14.5)
[2019-05-11 06:37] LABS: ALT/SGPT 8 U/l (0-40); AST/SGOT 19 U/l (0-37); Albumin 2.9 gm/dL (3.2-5.2); Alkaline Phosphatase 71 U/L (39-117); Bilirubin,Direct < 0.2 mg/dL (0.0-0.3); Bilirubin,Total 0.3 mg/dL (0.0-1.0); Blood Urea Nitrogen 12 mg/dl (8-23); Calcium 8.3 mg/dl (8.6-10.4); Carbon Dioxide 24 mmol/L (22-30); Chloride 102 mmol/L (96-108); Glomerular Filtration Rate 102; Glucose 103 mg/dL (70-105); Lactate Dehydrogenase 186 U/L (94-250); Phosphorous 3.1 mg/dL (2.7-4.5); Triglycerides 82 mg/dl (<150); Uric Acid 3.4 mg/dL (2.5-8.0)
[2019-05-11 07:24] LABS: Band Neutrophils % 4 % (0-10); Eosinophils % (Manual) 4 % (0-7); Hypochromasia 2+ (NONE SEEN); Lymphocytes % 20 % (15-49); Monocytes % (Manual) 8 % (1-12); Platelet Estimate NORMAL (NORMAL); RBC Morphology ABNORM (NORMAL); Reactive Lymphocytes 1 % (0-2); Segmented Neutrophils % 63 % (38-78)
[2019-05-11] MEDS: POLYVINYL ALCOHOL OPHTH DROPS 15ML BOTTLE OU SCH ×2 (09:08→21:00)
[2019-05-11] MEDS: HEPARIN 5,000 UNIT/ML VIAL SQ SCH ×2 (09:09→21:00)
[2019-05-11] MEDS: cefTRIAXone 2 GM in DEXTROSE 5% IN WATER 50 ML IV SCH (09:10)
[2019-05-11] MEDS: FOLIC ACID 1 MG TABLET PO SCH ×2 (09:13→20:51)
[2019-05-11] MEDS: LACTOBACILLUS 1 CAPSULE PO SCH ×2 (09:13→20:52)
[2019-05-11] MEDS: MULTIVIT,THER IRON,CA,FA & MIN 1 TABLET PO SCH (09:13)
[2019-05-11] MEDS: ASPIRIN 81 MG TAB.CHEW PO SCH (09:13)
[2019-05-11] MEDS: CARBIDOPA/LEVODOPA 25/250 TABLET PO SCH ×3 (09:14→21:01)
[2019-05-11] MEDS: DOCUSATE SODIUM 100 MG CAPSULE PO SCH ×2 (09:14→20:52)
[2019-05-11] MEDS: ACETAMINOPHEN 325 MG TABLET PO PRN (09:16)
[2019-05-11] MEDS: FAMOTIDINE 20 MG TABLET PO SCH (20:52)
[2019-05-11] MEDS: MELATONIN 3 MG TABLET PO SCH (20:52)
[2019-05-11] MEDS: TAMSULOSIN 0.4 MG CAPSULE PO SCH (20:52)
[2019-05-11] MEDS: SENNOSIDES/DOCUSATE SODIUM 1 TAB TABLET PO SCH (20:52)
--- NOTE | 2019-05-11 21:28 | Internal Med Progress Note ---
Medical - PN: Subj Patient information: Note initiated : 05/11/19 at 9:26 pm Service Date, if different from initiated Date: [] Patient: Stu Jacobo a 78 y/o M admitted on 05/08/19 for rt hip Pain. Chief Complaint: Follow-up hip fracture Interval history: Mr. Jacobo is a 78 year old M mentally delayed gentleman who presents from long-term care facility after sustaining a fall injuring his right hip. Exact circumstances of fall were unknown as the patient is very poor historian. Initial work-up in the ER was consistent with right hip fracture. patient was taken to surgery for operative intervention and postoperatively hospitalist service was consulted. At the time of evaluation patient is under the effect of sedation. Immediate postop. Does not seem to apparent distress. Vital signs have been stable. No family members are present. Prior records were reviewed. Patient carries a history of Parkinson's disease/degenerative joint disease, dementia and depression no major prior medical history including CAD/CVA. 05/09-doing well postop. Nurse concerned about low blood pressure. Started on crystalloids with improvement in systolics. Lopes is draining clear urine. Labs stable. No significant postoperative pain. No overnight events. 05/10-patient doing well. No overnight events. No concerns per staff. Essentially wheelchair dependent baseline. Hemoglobin 8.1. No evidence of ble eding. No significant pain. Tolerating diet. Anticipate discharge in 48 hours to SNF 05/11-seen and examined at bedside. Required straight cath x2 yesterday, still with urinary retention and eventually Lopes was placed. He is without can complaint today. Pain in hip is manageable. Arrangements made for discharge to skilled facility on 05/13. - Constitutional Vitals: Vital Signs Temp Pulse Resp BP Pulse Ox 98.5 F 66 24 H 113/63 93 05/11/19 19:38 05/11/19 19:38 05/11/19 19:38 05/11/19 19:38 05/11/19 19:38 Period Temp Pulse Resp BP Sys/Granado Pulse Ox Last 24 Hr 98.3 F-99.3 F 62-89 14-24 97-116/52-67 92-97 Intake and Output 05/11/19 05/11/19 05/11/19 05:59 13:59 21:59 Intake Total 1300 390 120 Output Total 650 Balance 1300 390 -530 Weight 145 lb 8 oz Patient Weight 05/12/19 05:59 Weight 145 lb 8 oz Intake & Output: Intake & Output 05/11/19 05/11/19 05/11/19 05:59 13:59 21:59 Intake Total 1300 390 120 Output Total 650 Balance 1300 390 -530 Weight 145 lb 8 oz Intake: IV 1000 50 Lactated Ringers 1,000 ml @ 50 1000 mls/hr IV .Q20H [facility] Rx#: [id number] Rocephin 2 gm In Dextrose 5% in 50 Water 50 ml @ 100 mls/hr IV Q24H [facility] Rx#:[id number] Oral 300 340 120 Output: Urine Catheter Amount 650 Other: Meal Lunch Dinner Percent of Meal Consumed 25% 40% Feeding Ability Total Assistance Total Assistance Urine Appearance Clear Uretheral (Lopes) Clear Clear Urine Color Dark Yellow Uretheral (Lopes) Dark Yellow Dark Yellow Urine Odor Uretheral (Lopes) Normal Stool Size Large Moderate Stool Color Brown Brown Stool Consistency Soft Formed Loose # Bowel Movements 2 # of times incontinent of 1 1 Bowels Exam: General: In no acute distress, pleasant Chest: Poor inspiratory effort, but clear Cardiovascular: Regular Abdomen: Soft, nontender Musculoskeletal: Right hip dressing is intact. Limb is neurovascularly intact. Medical - PN: Obj Da - Labs CBC & Chem 7: 05/11/19 04:44 05/11/19 04:44 Labs: Abnormal Lab Results 05/11/19 05/11/19 05/10/19 04:44 04:44 04:30 RBC 2.65 L Hgb 7.4 L Hct 22.8 L RDW 15.9 H Seg Neutrophils % Lymphocytes % RBC Morphology Abnorm A Polychromasia Hypochromasia 2+ A Creatinine 0.5 L 0.6 L Glucose Calcium 8.3 L 8.5 L GGT 6 L Albumin 2.9 L 05/10/19 05/09/19 05/09/19 04:30 04:15 04:15 RBC 2.87 L 3.20 L Hgb 8.1 L 9.1 L Hct 24.8 L 28.0 L RDW 15.8 H 15.8 H Seg Neutrophils % 88 H Lymphocytes % 7 L RBC Morphology Abnorm A Polychromasia 1+ A Hypochromasia 1+ A Creatinine 0.6 L Glucose 173 H Calcium GGT Albumin Meds: Medications Acetaminophen (Tylenol) 650 mg PO Q4-6HP PRN PRN Reason: PAIN/FEVER > 101 Last Admin: 05/11/19 09:16 Dose: 650 mg Documented by: Artificial Tears (Artificial Tears Ophth Drops) 2 gtt OU BID [facility] Last Admin: 05/11/19 21:00 Dose: 2 gtt Documented by: Aspirin (Aspirin) 81 mg PO DAILY [facility] Last Admin: 05/11/19 09:13 Dose: 81 mg Documented by: Bisacodyl (Dulcolax) 10 mg [place] Q2-3DAYS PRN PRN Reason: Constipation Last Admin: 05/09/19 17:53 Dose: 10 mg Documented by: Carbidopa/Levodopa (Sinemet 25/250) 0.5 tab PO TID [facility] Last Admin: 05/11/19 21:01 Dose: Not Given Documented by: Docusate Sodium (Colace) 100 mg PO BID [facility] Last Admin: 05/11/19 20:52 Dose: 100 mg Documented by: Famotidine (Pepcid) 40 mg PO HS [facility] Last Admin: 05/11/19 20:52 Dose: 40 mg Documented by: Folic Acid (Folic Acid) 0.8 mg PO BID [facility] Last Admin: 05/11/19 20:51 Dose: 0.8 mg Documented by: Heparin Sodium (Porcine) (Heparin) 5,000 unit SQ Q12 [facility] Last Admin: 05/11/19 21:00 Dose: 5,000 unit Documented by: Magnesium Sulfate (Magnesium Sulfate) 2 gm in 50 mls @ 50 mls/hr IV UD PRN PRN Reason: MG = or < 1.7 Acetaminophen (Ofirmev) 1,000 mg in 100 mls @ 200 mls/hr IV Q6HP PRN PRN Reason: PAIN/FEVER > 101 Last Infusion: 05/10/19 15:35 Dose: Infused Documented by: Lactated Ringer's (Lactated Ringers) 1,000 mls @ 50 mls/hr IV .Q20H [facility] Last Admin: 05/11/19 03:34 Dose: 50 mls/hr Documented by: Ceftriaxone Sodium 2 gm/ (Dextrose) 50 mls @ 100 mls/hr IV Q24H [facility]; Protocol Last Infusion: 05/11/19 13:48 Dose: Infused Documented by: Iron Carb/Multivit/Algology Teacher/Folic Acid (Multivitamin W/Minerals) 1 tab PO DAILY [facility] Last Admin: 05/11/19 09:13 Dose: 1 tab Documented by: Lactobacillus Rhamnosus (Culturelle) 1 cap PO BID [facility] Last Admin: 05/11/19 20:52 Dose: 1 cap Documented by: Magnesium Hydroxide (Milk Of Magnesia) 30 ml PO [facility] PRN PRN Reason: Constipation Melatonin (Melatonin 3mg Tablet) 3 mg PO [facility] Last Admin: 05/11/19 20:52 Dose: 3 mg Documented by: Ondansetron HCl (Zofran) 4 mg IV Q4-6HP PRN PRN Reason: Nausea And Vomiting Polyethylene Glycol (Miralax) 17 gm PO DAILYP PRN PRN Reason: Constipation Potassium Chloride (Klor-Con) 40 meq PO DAILYP PRN PRN Reason: K+ < 3.5 Senna/Docusate Sodium (Senna Plus Tablet) 1 tab PO [facility] Last Admin: 05/11/19 20:52 Dose: 1 tab Documented by: Tamsulosin HCl (Flomax) 0.4 mg PO [facility] Last Admin: 05/11/19 20:52 Dose: 0.4 mg Documented by: Medical - PN: A/P - Time Spent With Patient Total time spent is greater than 50% in coordination of care (as documented) at patient's floor/unit and/or counseling patient: 25 - 35 minutes - Narrative A/P Narrative: 78-year-old male with history of developmental delay presents after a fall at a skilled facility with right hip fracture. Right hip fracture. Postop day #3. Pain appears controlled. Plan: Management per Ortho, therapies Hypotension in the postoperative period. Suspect secondary to volume depletion, resolved with fluids. Plan: Monitor. Parkinson's disease. Stable on carbidopa/levodopa. Plan: Continue current regimen BPH with lower urinary tract symptoms. Significant urinary retention, likely implicated by narcotics for pain control. Now has Lopes catheter in place. Plan: Continue tamsulosin, continue with Lopes catheter, will need voiding trial after several days. Urinary tract infection. Enterococcus on culture. Plan: Discontinue ceftriaxone, begin nitrofurantoin. CODE STATUS: Full code Prophylaxis: Heparin Anticipated discharge on Sunday to skilled facility.
[2019-05-11] MEDS ORDERED: NITROFURANTOIN SR 100 MG CAPSULE PO ONE (21:32)
[2019-05-12] MEDS: LACTATED RINGERS 1,000 ML IV SCH ×3 (00:10→21:24)
[2019-05-12] MEDS: ACETAMINOPHEN 1,000 MG/100 ML BOTTLE IV PRN ×2 (05:49→12:07)
[2019-05-12 06:02] LABS: Hematocrit 22.4 % (41.0-55.0); Hemoglobin 7.4 g/dL (13.5-16.5); Mean Cell Volume 85.9 fL (80.0-100.0); Mean Corpuscular HGB Conc 33.2 g/dL (31.0-36.0); Mean Platelet Volume 7.9 fL (7.4-10.4); Platelet Count 223 K/mcL (140-440); Red Cell Distribution Width 15.6 % (11.5-14.5); WBC 5.7 K/mcL (4.5-11.0)
[2019-05-12 06:28] LABS: ALT/SGPT 9 U/l (0-40); AST/SGOT 20 U/l (0-37); Albumin 2.7 gm/dL (3.2-5.2); Albumin/Globulin Ratio 0.8 (1.0-2.3); Alkaline Phosphatase 73 U/L (39-117); Bilirubin,Direct < 0.2 mg/dL (0.0-0.3); Bilirubin,Total 0.3 mg/dL (0.0-1.0); Blood Urea Nitrogen 11 mg/dl (8-23); Calcium 8.3 mg/dl (8.6-10.4); Carbon Dioxide 21 mmol/L (22-30); Chloride 99 mmol/L (96-108); Globulin 3.5 gm/dL (2.2-3.7); Glomerular Filtration Rate 95; Glucose 107 mg/dL (70-105); Lactate Dehydrogenase 203 U/L (94-250); Phosphorous 3.2 mg/dL (2.7-4.5); Triglycerides 92 mg/dl (<150); Uric Acid 3.4 mg/dL (2.5-8.0)
[2019-05-12 08:10] LABS: Band Neutrophils % 11 % (0-10); Eosinophils % (Manual) 5 % (0-7); Hypochromasia 2+ (NONE SEEN); Lymphocytes % 22 % (15-49); Monocytes % (Manual) 10 % (1-12); Platelet Estimate NORMAL (NORMAL); Polychromasia FEW (NONE SEEN); RBC Morphology ABNORM (NORMAL); Reactive Lymphocytes 1 % (0-2); Segmented Neutrophils % 51 % (38-78)
[2019-05-12] MEDS: HEPARIN 5,000 UNIT/ML VIAL SQ SCH ×2 (08:28→22:13)
[2019-05-12] MEDS: POLYVINYL ALCOHOL OPHTH DROPS 15ML BOTTLE OU SCH ×2 (08:28→22:00)
[2019-05-12] MEDS: MULTIVIT,THER IRON,CA,FA & MIN 1 TABLET PO SCH (08:28)
[2019-05-12] MEDS: LACTOBACILLUS 1 CAPSULE PO SCH ×2 (08:28→22:12)
[2019-05-12] MEDS: ASPIRIN 81 MG TAB.CHEW PO SCH (08:29)
[2019-05-12] MEDS: FOLIC ACID 1 MG TABLET PO SCH ×2 (08:29→22:12)
[2019-05-12] MEDS: DOCUSATE SODIUM 100 MG CAPSULE PO SCH ×2 (08:29→22:13)
[2019-05-12] MEDS: NITROFURANTOIN SR 100 MG CAPSULE PO SCH ×2 (08:29→22:12)
[2019-05-12] MEDS: CARBIDOPA/LEVODOPA 25/250 TABLET PO SCH ×3 (09:16→22:14)
[2019-05-12] MEDS: MELATONIN 3 MG TABLET PO SCH (22:12)
[2019-05-12] MEDS: TAMSULOSIN 0.4 MG CAPSULE PO SCH (22:12)
[2019-05-12] MEDS: SENNOSIDES/DOCUSATE SODIUM 1 TAB TABLET PO SCH (22:13)
[2019-05-12] MEDS: FAMOTIDINE 20 MG TABLET PO SCH (22:13)
--- NOTE | 2019-05-12 22:28 | Internal Med Progress Note ---
Medical - PN: Subj Patient information: Note initiated : 05/12/19 at 10:26 pm Service Date, if different from initiated Date: [] Patient: Stu Jacobo a 78 y/o M admitted on 05/08/19 for rt hip Pain. Chief Complaint: Follow-up hip fracture Interval history: Mr. Jacobo is a 78 year old M mentally delayed gentleman who presents from long-term care facility after sustaining a fall injuring his right hip. Exact circumstances of fall were unknown as the patient is very poor historian. Initial work-up in the ER was consistent with right hip fracture. patient was taken to surgery for operative intervention and postoperatively hospitalist service was consulted. At the time of evaluation patient is under the effect of sedation. Immediate postop. Does not seem to apparent distress. Vital signs have been stable. No family members are present. Prior records were reviewed. Patient carries a history of Parkinson's disease/degenerative joint disease, dementia and depression no major prior medical history including CAD/CVA. 05/09-doing well postop. Nurse concerned about low blood pressure. Started on crystalloids with improvement in systolics. Lopes is draining clear urine. Labs stable. No significant postoperative pain. No overnight events. 05/10-patient doing well. No overnight events. No concerns per staff. Essentially wheelchair dependent baseline. Hemoglobin 8.1. No evidence of bl eeding. No significant pain. Tolerating diet. Anticipate discharge in 48 hours to SNF 05/11-seen and examined at bedside. Required straight cath x2 yesterday, still with urinary retention and eventually Lopes was placed. He is without can complaint today. Pain in hip is manageable. Arrangements made for discharge to skilled facility on 05/13. een at bedside with nursing. Lopes catheter remains in place for urinary retention. Generally remains without complaint today, though speech is difficult to understand. - Constitutional Vitals: Vital Signs Temp Pulse Resp BP Pulse Ox 98.1 F 63 24 H 112/62 94 05/12/19 19:07 05/12/19 19:07 05/12/19 19:07 05/12/19 19:07 05/12/19 19:07 Period Temp Pulse Resp BP Sys/Granado Pulse Ox Last 24 Hr 97.7 F-98.9 F 58-67 18-24 112-130/60-66 90-96 Intake and Output 05/12/19 05/12/19 05/13/19 13:59 21:59 05:59 Intake Total 400 1640 Balance 400 1640 Weight 143 lb 8 oz Patient Weight 05/13/19 05:59 Weight 143 lb 8 oz Intake & Output: Intake & Output 05/12/19 05/12/19 05/13/19 13:59 21:59 05:59 Intake Total 400 1640 Balance 400 1640 Weight 143 lb 8 oz Intake: IV 100 1000 Lactated Ringers 1,000 ml @ 50 1000 mls/hr IV .Q20H [facility] Rx#: [id number] Oral 300 640 Other: Meal Breakfast Dinner Percent of Meal Consumed 75% 75% Feeding Ability Total Assistance Total Assistance Nourishment/Supplement name Enlive Stool Size Moderate Moderate Stool Color Brown Brown Stool Consistency Soft Soft # Bowel Movements 1 3 Exam: General: In bed, eating lunch Chest: Clear Cardiovascular: Regular Abdomen: Soft Musculoskeletal: Right hip dressing intact and dry, limb is neurovascular intact Medical - PN: Obj Da - Labs CBC & Chem 7: 05/12/19 04:36 05/12/19 04:36 Labs: Abnormal Lab Results 05/12/19 05/12/19 05/11/19 04:36 04:36 04:44 RBC 2.60 L Hgb 7.4 L Hct 22.4 L RDW 15.6 H Band Neutrophils % 11 H RBC Morphology Abnorm A Polychromasia Few A Hypochromasia 2+ A Sodium 132 L Carbon Dioxide 21 L Creatinine 0.6 L 0.5 L Glucose 107 H Calcium 8.3 L 8.3 L GGT 7 L 6 L Albumin 2.7 L 2.9 L Albumin/Globulin Ratio 0.8 L 05/11/19 05/10/19 05/10/19 04:44 04:30 04:30 RBC 2.65 L 2.87 L Hgb 7.4 L 8.1 L Hct 22.8 L 24.8 L RDW 15.9 H 15.8 H Band Neutrophils % RBC Morphology Abnorm A Abnorm A Polychromasia 1+ A Hypochromasia 2+ A 1+ A Sodium Carbon Dioxide Creatinine 0.6 L Glucose Calcium 8.5 L GGT Albumin Albumin/Globulin Ratio Meds: Medications Acetaminophen (Tylenol) 650 mg PO Q4-6HP PRN PRN Reason: PAIN/FEVER > 101 Last Admin: 05/11/19 09:16 Dose: 650 mg Documented by: Artificial Tears (Artificial Tears Ophth Drops) 2 gtt OU BID [facility] Last Admin: 05/12/19 08:28 Dose: 2 gtt Documented by: Aspirin (Aspirin) 81 mg PO DAILY [facility] Last Admin: 05/12/19 08:29 Dose: 81 mg Documented by: Bisacodyl (Dulcolax) 10 mg OK Q2-3DAYS PRN PRN Reason: Constipation Last Admin: 05/09/19 17:53 Dose: 10 mg Documented by: Carbidopa/Levodopa (Sinemet 25/250) 0.5 tab PO TID [facility] Last Admin: 05/12/19 22:14 Dose: Not Given Documented by: Docusate Sodium (Colace) 100 mg PO BID [facility] Last Admin: 05/12/19 22:13 Dose: Not Given Documented by: Famotidine (Pepcid) 40 mg PO HS [facility] Last Admin: 05/12/19 22:13 Dose: 40 mg Documented by: Folic Acid (Folic Acid) 0.8 mg PO BID [facility] Last Admin: 05/12/19 22:12 Dose: 0.8 mg Documented by: Heparin Sodium (Porcine) (Heparin) 5,000 unit SQ Q12 [facility] Last Admin: 05/12/19 22:13 Dose: 5,000 unit Documented by: Magnesium Sulfate (Magnesium Sulfate) 2 gm in 50 mls @ 50 mls/hr IV UD PRN PRN Reason: MG = or < 1.7 Acetaminophen (Ofirmev) 1,000 mg in 100 mls @ 200 mls/hr IV Q6HP PRN PRN Reason: PAIN/FEVER > 101 Last Admin: 05/12/19 12:07 Dose: 200 mls/hr Documented by: Lactated Ringer's (Lactated Ringers) 1,000 mls @ 50 mls/hr IV .Q20H [facility] Last Admin: 05/12/19 21:24 Dose: 50 mls/hr Documented by: Iron Carb/Multivit/Bleckley/Folic Acid (Multivitamin W/Minerals) 1 tab PO DAILY [facility] Last Admin: 05/12/19 08:28 Dose: 1 tab Documented by: Lactobacillus Rhamnosus (Culturelle) 1 cap PO BID [facility] Last Admin: 05/12/19 22:12 Dose: 1 cap Documented by: Magnesium Hydroxide (Milk Of Magnesia) 30 ml PO HSP PRN PRN Reason: Constipation Melatonin (Melatonin 3mg Tablet) 3 mg PO [facility] Last Admin: 05/12/19 22:12 Dose: 3 mg Documented by: Nitrofurantoin Macrocrystals (Macrobid) 100 mg PO BID [facility] Last Admin: 05/12/19 22:12 Dose: 100 mg Documented by: Ondansetron HCl (Zofran) 4 mg IV Q4-6HP PRN PRN Reason: Nausea And Vomiting Polyethylene Glycol (Miralax) 17 gm PO DAILYP PRN PRN Reason: Constipation Potassium Chloride (Klor-Con) 40 meq PO DAILYP PRN PRN Reason: K+ < 3.5 Senna/Docusate Sodium (Senna Plus Tablet) 1 tab PO [facility] Last Admin: 05/12/19 22:13 Dose: Not Given Documented by: Tamsulosin HCl (Flomax) 0.4 mg PO [facility] Last Admin: 05/12/19 22:12 Dose: 0.4 mg Documented by: Medical - PN: A/P - Time Spent With Patient Total time spent is greater than 50% in coordination of care (as documented) at patient's floor/unit and/or counseling patient: 25 - 35 minutes - Narrative A/P Narrative: 78-year-old male with history of developmental delay presents after a fall at a skilled facility with right hip fracture. Right hip fracture. Postop day #4. Pain appears controlled. Plan: Management per Ortho, therapies Hypotension in the postoperative period. Suspect secondary to volume depletion, resolved with fluids. Plan: Monitor. Parkinson's disease. Stable on carbidopa/levodopa. Plan: Continue current regimen BPH with lower urinary tract symptoms. Significant urinary retention, likely implicated by narcotics for pain control. Now has Lopes catheter in place. Plan: Continue tamsulosin, continue with Lopes catheter, will need voiding trial after several days. Urinary tract infection. Enterococcus on culture. Plan: Discontinue ceftriaxone, begin nitrofurantoin. CODE STATUS: Full code Prophylaxis: Heparin Anticipated discharge on Sunday to skilled facility.
[2019-05-13] MEDS: ACETAMINOPHEN 1,000 MG/100 ML BOTTLE IV PRN ×2 (01:45→09:11)
[2019-05-13 06:03] LABS: Hematocrit 22.8 % (41.0-55.0); Hemoglobin 7.4 g/dL (13.5-16.5); Mean Cell Volume 86.9 fL (80.0-100.0); Mean Corpuscular HGB Conc 32.5 g/dL (31.0-36.0); Mean Platelet Volume 8.4 fL (7.4-10.4); Platelet Count 214 K/mcL (140-440); RBC 2.62 M/mcL (4.50-5.90); Red Cell Distribution Width 15.9 % (11.5-14.5); WBC 6.3 K/mcL (4.5-11.0)
[2019-05-13 06:12] LABS: ALT/SGPT 9 U/l (0-40); AST/SGOT 20 U/l (0-37); Alkaline Phosphatase 70 U/L (39-117); Bilirubin,Direct < 0.2 mg/dL (0.0-0.3); Bilirubin,Total 0.3 mg/dL (0.0-1.0); Blood Urea Nitrogen 13 mg/dl (8-23); Calcium 8.2 mg/dl (8.6-10.4); Carbon Dioxide 22 mmol/L (22-30); Chloride 101 mmol/L (96-108); Globulin 3.1 gm/dL (2.2-3.7); Glomerular Filtration Rate 102; Glucose 139 mg/dL (70-105); Lactate Dehydrogenase 192 U/L (94-250); Phosphorous 3.4 mg/dL (2.7-4.5); Triglycerides 84 mg/dl (<150); Uric Acid 3.4 mg/dL (2.5-8.0)
[2019-05-13] MEDS: ASPIRIN 81 MG TAB.CHEW PO SCH (07:46)
[2019-05-13] MEDS: LACTOBACILLUS 1 CAPSULE PO SCH (07:46)
[2019-05-13] MEDS: POLYVINYL ALCOHOL OPHTH DROPS 15ML BOTTLE OU SCH (07:46)
[2019-05-13] MEDS: HEPARIN 5,000 UNIT/ML VIAL SQ SCH (07:46)
[2019-05-13] MEDS: NITROFURANTOIN SR 100 MG CAPSULE PO SCH (07:47)
[2019-05-13] MEDS: FOLIC ACID 1 MG TABLET PO SCH (07:47)
[2019-05-13] MEDS: MULTIVIT,THER IRON,CA,FA & MIN 1 TABLET PO SCH (07:47)
[2019-05-13] MEDS: DOCUSATE SODIUM 100 MG CAPSULE PO SCH (07:50)
[2019-05-13] MEDS: CARBIDOPA/LEVODOPA 25/250 TABLET PO SCH (07:50)
[2019-05-13 08:40] LABS: Anisocytosis FEW (NONE SEEN); Eosinophils % (Manual) 10 % (0-7); Lymphocytes % 32 % (15-49); Microcytosis FEW (NONE SEEN); Monocytes % (Manual) 8 % (1-12); Platelet Estimate NORMAL (NORMAL); RBC Morphology ABNORM (NORMAL); Segmented Neutrophils % 50 % (38-78)
--- NOTE | 2019-05-13 10:40 | Discharge Summary ---
Medical - DS: Prov Patient information: Note initiated : 05/13/19 at 10:36 am Service Date, if different from initiated Date: [] Patient: Stu Jacobo 78 y/o M admitted on 05/08/19 for rt hip Pain. Chief Complaint: [] Date of admission: 05/08/19 23:30 Discharge date: 05/13/19 Primary care physician: Issac Caldera Admitting clinician: Kentrell Puente Consults: 05/08/19 Consult to Physician [CONS] Stat Comment: Consulting Provider: Kentrell Puente Reason For Exam: Physician to Consult Pranav Malik MD for Ortho Discharging clinician: Carmencita Dai Medical - DS: Meds - Discharge Medications Active and Home Medications: Home Medications cholecalciferol (vitamin D3) 2,000 unit capsule 2,000 unit PO QDAY 07/21/15 [History Confirmed 05/09/19 Last Taken Unknown] polyethylene glycol 3350 17 gram oral powder packet 17 g PO DAILYP PRN 07/21/15 [History Confirmed 05/09/19 Last Taken Unknown] bisacodyl 10 mg rectal suppository 10 mg [place] PRN PRN supp 08/11/15 [History Confirmed 05/09/19 Last Taken Unknown] tamsulosin 0.4 mg capsule 0.4 mg PO HS 08/11/15 [History Confirmed 05/09/19 Last Taken Unknown] melatonin 3 mg tablet 3 mg PO HS 09/21/15 [History Confirmed 05/09/19 Last Taken Unknown] Acetaminophen [Non-Aspirin] 650 mg PO Q6HP PRN 05/09/19 [History Confirmed 05/09/19 Last Taken Unknown] Aspirin [Veronica Chewable Aspirin] 81 mg PO DAILY 05/09/19 [History Confirmed 05/09/19 Last Taken Unknown] Calcium Carbonate [Tums] 500 mg CHEWED TIDCC 05/09/19 [History Confirmed 05/09/19 Last Taken Unknown] Carbidopa/Levodopa [Sinemet 25-250 mg Tablet] 0.5 tab PO TID 05/09/19 [History Confirmed 05/09/19 Last Taken Unknown] Cyanocobalamin (Vitamin B-12) [Vitamin B-12] 1,000 mcg PO DAILY 05/09/19 [History Confirmed 05/09/19 Last Taken Unknown] Folic Acid [FA-8] 0.8 mg PO BID 05/09/19 [History Confirmed 05/09/19 Last Taken Unknown] Magnesium Hydroxide [Milk of Magnesia] 30 ml PO PRN PRN 05/09/19 [History Confirmed 05/09/19 Last Taken Unknown] Na Phos,M-B/Na Phos,Di-Ba [Fleets Adult] 1 dose [place] PRN PRN 05/09/19 [History Confirmed 05/09/19 Last Taken Unknown] Ondansetron HCl [Zofran] 8 mg PO Q6HP PRN 05/09/19 [History Confirmed 05/09/19 Last Taken Unknown] Propylene Glycol-Glycerin Solu 2 gtt OU BID 05/09/19 [History Confirmed 05/09/19 Last Taken Unknown] Ranitidine HCl [Zantac] 300 mg PO QHS 05/09/19 [History Confirmed 05/09/19 Last Taken Unknown] Saccharomyces Boulardii [Florastor] 250 mg PO BID 05/09/19 [History Confirmed 05/09/19 Last Taken Unknown] guaiFENesin [Mucinex] 600 mg PO DAILY 05/09/19 [History Confirmed 05/09/19 Last Taken Unknown] Medical - DS: Hosp Hospital Course: Mr. Jacobo is a 78 year old M mentally delayed gentleman who presents from long-term care facility after sustaining a fall injuring his right hip. Exact circumstances of fall were unknown as the patient is very poor historian. Initial work-up in the ER was consistent with right hip fracture. patient was taken to surgery for operative intervention and postoperatively hospitalist service was consulted. At the time of evaluation patient is under the effect of sedation. Immediate postop. Does not seem to apparent distress. Vital signs have been stable. No family members are present. Prior records were reviewed. Patient carries a history of Parkinson's dis ease/degenerative joint disease, dementia and depression no major prior medical history including CAD/CVA. 05/09-doing well postop. Nurse concerned about low blood pressure. Started on crystalloids with improvement in systolics. Lopes is draining clear urine. Labs stable. No significant postoperative pain. No overnight events. 05/10-patient doing well. No overnight events. No concerns per staff. Essentially wheelchair dependent baseline. Hemoglobin 8.1. No evidence of bleeding. No significant pain. Tolerating diet. Anticipate discharge in 48 hours to SNF 05/11-seen and examined at bedside. Required straight cath x2 yesterday, still with urinary retention and eventually Lopes was placed. He is without can complaint today. Pain in hip is manageable. Arrangements made for discharge to skilled facility on 05/13. 2seen at bedside with nursing. Lopes catheter remains in place for urinary retention. Generally remains without complaint today, though speech is difficult to understand. een at bedside with therapist. In good spirits. Stable for discharge to skilled facility. Discharge diagnosis: Right intertrochanteric hip fracture Secondary discharge diagnosis: Enterococcal urinary tract infection Developmental delay - Time Spent with Patient Total time spent providing and/or coordinating discharge services: Greater than 30 minutes Medical - DS: Exam - Constitutional Vitals: Vital Signs Temp Pulse Resp BP Pulse Ox 05/13/19 08:00 96.8 F L 65 22 122/62 94 05/13/19 04:05 98.0 F 68 22 130/64 95 05/12/19 23:16 98.0 F 75 24 H 142/68 95 05/12/19 19:07 98.1 F 63 24 H 112/62 94 05/12/19 16:00 97.9 F 61 18 117/63 96 05/12/19 12:00 98.4 F 67 20 130/60 96 Intake and Output 05/12/19 05/13/19 05/13/19 21:59 05:59 13:59 Intake Total 1640 580 360 Output Total 750 Balance 1640 -170 360 Intake: Nourishment/Supplement quantity 240 240 (ml) IV 1000 100 Lactated Ringers 1,000 ml @ 50 1000 mls/hr IV .Q20H [facility] Rx#: [id number] Oral 640 240 120 Output: Urine Catheter Amount 750 Other: Meal Dinner Nourishment/Supplement Breakfast Percent of Meal Consumed 75% 100% 75% Feeding Ability Total Assistance Needs Supervision Nourishment/Supplement name Enlive Ensure Enlive Enlive Urine Appearance Sediment Uretheral (Lopes) Clear Urine Color Dark Yellow Uretheral (Lopes) Bright Yellow Stool Size Moderate Small Stool Color Brown Brown Stool Consistency Soft Soft Formed # Bowel Movements 3 1 # of times incontinent of 1 Bowels Weight 143 lb 8 oz Additional comments: General: In no acute distress Chest: Clear Cardiovascular: Regular Abdomen: Soft Musculoskeletal: Right lower extremity neurovascularly intact, dressing intact and dry Medical - DS: Data Procedures and tests throughout hospitalization: Date of procedure: 05/08/19 Pre-op diagnosis: right intertrochanteric hip fracture Post-op diagnosis: same Procedure: ORIF right intertroch femur frature with short gamma nail Grafts/Implants: Yes (short gamma 100mm lag screw) Anesthesia: GETA Findings: reducible intertroch fracture, lesser off Complications: none Surgeon: Pranav Malik Outside Machinist Helper: Leroy Stewart Labs on day of discharge: Labs from last 24 hours 05/13/19 05/13/19 04:20 04:20 WBC 6.3 RBC 2.62 L Hgb 7.4 L Hct 22.8 L MCV 86.9 MCH 28.3 MCHC 32.5 RDW 15.9 H Plt Count 214 MPV 8.4 Total Counted 100 Seg Neutrophils % 50 Band Neutrophils % Not Reportable Lymphocytes % 32 Monocytes % (Manual) 8 Eosinophils % (Manual) 10 H Platelet Estimate Normal RBC Morphology Abnorm A Anisocytosis Few A Microcytosis Few A Sodium 136 Potassium 3.9 Chloride 101 Carbon Dioxide 22 Anion Gap 13.0 BUN 13 Creatinine 0.5 L GFR Calculation 102 Glucose 139 H Uric Acid 3.4 Calcium 8.2 L Phosphorus 3.4 Magnesium 1.9 Total Bilirubin 0.3 Direct Bilirubin < 0.2 GGT 7 L AST 20 ALT 9 Alkaline Phosphatase 70 Lactate Dehydrogenase 192 Total Protein 6.1 Albumin 3.0 L Globulin 3.1 Albumin/Globulin Ratio 1.0 Triglycerides 84 - Impressions Date of Service: 05/08/19 Procedure(s): XR hip RT comp 2VW FINDINGS: There is an acute comminuted intertrochanteric fracture of the proximal right femur. There is varus angulation. The neck and femoral head appear normal. The joint space is normal in width. Severe atherosclerotic disease is in the pelvis and proximal thigh bilaterally. IMPRESSION: Intertrochanteric fracture the proximal right femur Date of Service: 05/08/19 Procedure(s): XR chest 1V portable IMPRESSION: No acute abnormality Medical - DS: A/P - Patient/Caregiver Discharge Instructions Activity: as per physical therapy (No restrictions on weight bearing or movement), increase activity as tolerated Diet: Dysphagia Level 4 Pureed Foods (Ensure with meals), Thickened Liquids Other Amb Orders: OT Discharge Order Location: None Selected Physical Therapy at Discharge - General Location: None Selected ST Discharge Order Location: None Selected - Follow up Plan Follow up with: Issac Caldera MD [Primary Care Provider] - Pranav Malik MD [Physician] - (2 weeks) Disposition: Xfer SNF Prognosis: Fair Rehab Potential: Fair I certify that the patient requires SNF services: Yes Overall status at discharge: patient is not back to baseline
== END 2019-05-13 12:59 | DRG 481 ==
LOC: ED 17:09 → SUR 21:05 → MEDSUR 23:30
PROVIDERS: ADMIT Internal Medicine; ATTEND Internal Medicine